=== PATIENT | male | born 1950 | race Caucasian/White ===

== ENCOUNTER → 2024-02-19 | Outpatient (CLI) | payer MEDICARE, SELFPAY ==
--- NOTE | 2024-02-19 13:53 | ECHOD_ITS ---
Reason For Study: MURMUR Procedure This was a 2D Doppler, Color Flow transthoracic echocardiogram. Exam performed in department. Left Ventricle Normal LV size. Left ventricular systolic function is normal. The estimated ejection fraction is 65 %. Stage 1 diastolic dysfunction. No regional wall motion abnormalities noted. Right Ventricle Normal RV size. Normal systolic function. Atria Normal left atrium. Normal right atrium. Mitral Valve Normal mitral valve. Tricuspid Valve Normal tricuspid valve. Mild tricuspid valve insufficiency. Pulmonary artery systolic pressure is 22 mmHg. Aortic Valve Trisinus/trileaflet aortic valve. Pulmonic Valve The pulmonic valve is not well visualized. Great Vessels Mildly dilated aortic root. The pulmonary artery is normal size. Inferior vena cava collapse with respiration. Pericardium/Pleural No pericardial effusion. MMode/2D Measurements & Calculations LVIDd: 4.8 cm IVSd: 1.4 cm Ao root diam: 3.7 cm LVIDs: 3.3 cm LVPWd: 1.1 cm RVDd: 3.1 cm FS: 32.5 % LAV(MOD-bp): 42.4 ml LVAd ap4: 23.3 cm2 SV(MOD-sp4): 35.6 ml LAV(MOD-bp) Indexed: 18.8 ml/m2 LVLd ap4: 7.7 cm LAV(MOD-sp2): 41.6 ml EDV(MOD-sp4): 58.1 ml LAV(MOD-sp4): 41.9 ml EDV(sp4-el): 60.0 ml LVAs ap4: 12.6 cm2 LVLs ap4: 6.4 cm ESV(MOD-sp4): 22.5 ml ESV(sp4-el): 21.1 ml EF(MOD-sp4): 61.3 % EF(sp4-el): 64.8 % SV(sp4-el): 38.9 ml LA A4 area: 16.0 cm2 LA dimension(2D): 3.9 cm RA A4 area: 11.3 cm2 TAPSE: 2.2 cm Time Measurements MV dec time: 0.20 sec Doppler Measurements & Calculations MV E max brandon: 75.7 cm/sec Lat Peak E' Brandon: 7.1 cm/sec Med Peak E' Brandon: 7.9 cm/sec MV A max brandon: 79.7 cm/sec E/E' lat: 10.7 E/E' med: 9.6 MV E/A: 0.95 MV V2 max: 99.1 cm/sec MV P1/2t max brandon: 83.5 cm/sec Ao V2 max: 114.8 cm/sec MV max P.9 mmHg MV P1/2t: 63.0 msec Ao max P.3 mmHg MV V2 mean: 55.3 cm/sec Ao V2 mean: 84.8 cm/sec MV mean P.4 mmHg MV dec slope: 388.1 cm/sec2 Ao mean P.1 mmHg MV V2 VTI: 27.5 cm MVA(P1/2t): 3.5 cm2 Ao V2 VTI: 27.0 cm AV (velocity ratio): 0.74 LV V1 max: 97.4 cm/sec PA V2 max: 184.7 cm/sec TR max brandon: 218.9 cm/sec LV V1 max P.8 mmHg PA V2 mean: 115.2 cm/sec TR max P.2 mmHg LV V1 mean P.9 mmHg LV V1 mean: 64.5 cm/sec LV V1 VTI: 20.1 cm ECHO/Echo Complete Interpretation Summary Normal LV size. Left ventricular systolic function is normal. The estimated ejection fraction is 65 %. Mildly dilated aortic root. Stage 1 diastolic dysfunction. Pulmonary artery systolic pressure is 22 mmHg. Ordering Physician: Abrahan Castillo Referring Physician: Prasanna Bateman Performed By: Mariluz Perry, RIVAS, RVT
== END | disposition home or self-care (01) ==
LOC: CVS 13:51
PROVIDERS: PCP Student in an Organized Health Care Education/Training Program; Referring Provider Nurse Practitioner Family; Visit Provider Nurse Practitioner Family
DX: R06.02 Shortness of breath (principal); R01.1 Cardiac murmur, unspecified; I10 Essential (primary) hypertension; E78.5 Hyperlipidemia, unspecified
CPT/HCPCS: 93306